=== PATIENT | female | born 1985 | race Two or more races ===

== ENCOUNTER 2021-12-25 16:27 | Emergency (ER) | payer SELFPAY ==
[~2021-12-25] VITALS: Ht 152.4 cm; Wt 61.3 kg
[2021-12-25] MEDS ORDERED: IV NORMAL SALINE 1000ML BAG 1,000 ML IV ONE (16:45)
[2021-12-25 17:01] LABS: U PREG PATIENT POSITIVE (NEG)
[2021-12-25 17:11] LABS: CLARITY,URINE BLOODY; COLOR,URINE RED
[2021-12-25 17:12] LABS: BACTERIA,URINE 0 /HPF (0-FEW); RBC,URINE TNTC /HPF (0-2); WBC,URINE 20-40 /HPF (0-4)
--- NOTE | 2021-12-25 17:12 | PHYS DOC ---
Past Medical History Additional Past Medical Histor: PRE-ECLAMPSIA WITH 2ND Past Surgical History: No Surgical History Smoking Status: Never Smoker Alcohol Use: None Drug Use: None General Adult EDM: Chief Complaint: VAGINAL BLEEDING HPI: HPI: Patient is a 36 year old A0 female who presents with painful vaginal bleeding that began this morning. Patient states the first day of her last known menstrual period was 10/06/2021 and has had a positive home test. Patient is scheduled to establish care on 01/08/2022, about 2 weeks from today. She states that this morning, she went to the bathroom and had suprapubic cramping. At that time, she passed a "lemon sized" blood clot. Patient reports she had 1 additional similar episode prior to arrival here in the emergency department. She reports associated dizziness. She is in no pain at rest. Patient reports she had premature delivery in her last due to preeclampsia. She takes vitamins daily. Patient has no other complaints at this time. Review of Systems: Review of Systems: Constitutional: Denies fever, chills or generalized weakness Eyes: Denies change in visual acuity, visual field deficits or discharge HENT: Denies ear pain, nasal congestion or sore throat Respiratory: Denies cough or shortness of breath Cardiovascular: Denies chest pain, palpitations or edema GI: Denies abdominal pain, nausea, vomiting, bloody stools or diarrhea : See HPI Musculoskeletal: Denies back pain or joint pain Integument: Denies rash or other skin lesion Neurologic: See HPI Heart Score: C/O Chest Pain: No Current Medications: Current Medications Medications (Trade) Dose Ordered Sig/Trevon Start Time Stop Time Status Last Admin Dose Admin Sodium Chloride 1,000 ml @ 1,000 mls/hr 1X ONCE 12/25/21 16:45 12/25/21 17:44 12/25/21 17:00 1,000 MLS/HR Allergies: Allergies: Allergies Coded Allergies Type Severity Reaction Last Updated Verified No Known Drug Allergies 12/25/21 No Physical Exam: PE: Constitutional: Well developed, well nourished, no acute distress, non-toxic appearance. HENT: Normocephalic, atraumatic, bilateral external ears normal, nose normal. Eyes: EOMI, conjunctiva normal, no discharge. Neck: Normal range of motion, no stridor. Abdomen: Bowel sounds normal, soft, mild suprapubic tenderness without rebound or guarding, no masses, no pulsatile masses. Skin: Warm, dry, no erythema, no rash. Extremities: No tenderness, no cyanosis, no clubbing, ROM intact, no edema. Neurologic: Alert and oriented x4, steady and symmetrical upright gait, no focal deficits noted. Current Patient Data: Labs: Laboratory Tests Test 12/25/21 16:32 12/25/21 16:55 Urine Collection Type Unknown Urine Color Red Urine Clarity Bloody Urine pH (<5.0-8.0) Urine Specific [place] (1.000-1.030) Urine Protein mg/dL (NEG-TRACE) Urine Glucose (UA) mg/dL (NEG) Urine Ketones (Stick) mg/dL (NEG) Urine Blood (NEG) Urine Nitrite (NEG) Urine Bilirubin (NEG) Urine Urobilinogen Dipstick mg/dL (0.2 mg/dL) Urine Leukocyte Esterase (NEG) Urine RBC Tntc /HPF (0-2) Urine WBC 20-40 /HPF (0-4) Urine Squamous Epithelial Cells Few /LPF Urine Bacteria 0 /HPF (0-FEW) Urine Mucus Slight /LPF Urine Test Positive (NEG) White Blood Count 14.0 x10^3/uL (4.0-11.0) Red Blood Count 4.16 x10^6/uL (3.50-5.40) Hemoglobin 10.9 g/dL (12.0-15.5) Hematocrit 34.0 % (36.0-47.0) Mean Corpuscular Volume 82 fL (79-100) Mean Corpuscular Hemoglobin 26 pg (25-35) Mean Corpuscular Hemoglobin Concent 32 g/dL (31-37) Red Cell Distribution Width 15.5 % (11.5-14.5) Platelet Count 286 x10^3/uL (140-400) Neutrophils (%) (Auto) 89 % (31-73) Lymphocytes (%) (Auto) 9 % (24-48) Monocytes (%) (Auto) 3 % (0-9) Eosinophils (%) (Auto) 0 % (0-3) Basophils (%) (Auto) 0 % (0-3) Neutrophils # (Auto) 12.4 x10^3/uL (1.8-7.7) Lymphocytes # (Auto) 1.2 x10^3/uL (1.0-4.8) Monocytes # (Auto) 0.4 x10^3/uL (0.0-1.1) Eosinophils # (Auto) 0.0 x10^3/uL (0.0-0.7) Basophils # (Auto) 0.0 x10^3/uL (0.0-0.2) Maternal Serum HCG Beta Subunit 07458 mIU/mL (0-5) Sodium Level 136 mmol/L (136-145) Potassium Level 3.5 mmol/L (3.5-5.1) Chloride Level 101 mmol/L (98-107) Carbon Dioxide Level 21 mmol/L (21-32) Anion Gap 14 (6-14) Blood Urea Nitrogen 7 mg/dL (7-20) Creatinine 0.8 mg/dL (0.6-1.0) Estimated GFR (Cockcroft-Gault) 80.7 BUN/Creatinine Ratio 9 (6-20) Glucose Level 204 mg/dL (70-99) Calcium Level 8.6 mg/dL (8.5-10.1) Total Bilirubin 0.2 mg/dL (0.2-1.0) Aspartate Amino Transf (AST/SGOT) 58 U/L (15-37) Alanine Aminotransferase (ALT/SGPT) 77 U/L (14-59) Alkaline Phosphatase 68 U/L (46-116) Total Protein 7.7 g/dL (6.4-8.2) Albumin 3.2 g/dL (3.4-5.0) Albumin/Globulin Ratio 0.7 (1.0-1.7) Vital Signs: Vital Signs Date Time Temp Pulse Resp B/P (MAP) Pulse Ox O2 Delivery O2 Flow Rate FiO2 12/25/21 18:22 96 16 107/67 (80) 98 Room Air 12/25/21 18:04 98 106/65 (79) 98 Room Air 12/25/21 17:34 100 115/70 (85) 98 Room Air 12/25/21 17:04 108 128/74 (92) 98 Room Air 12/25/21 16:35 98.1 131 20 146/103 (117) 98 Room Air 98.1 Radiology/Procedures: Radiology/Procedures: PROCEDURE: OB <14 WKS W/TV US OB <14 WKS +TV Clinical Indication: Reason: vaginal bleeding with clots, lmp 10/06/21 / Comparison: None. TECHNIQUE: Real-time ultrasound imaging of the pelvis using transabdominal and transvaginal window is performed. Findings: Normal blood flow is demonstrated in the ovaries. There is a right ovary functional cyst measuring up to 2.8 cm. The uterus measures 11.2 x 7.7 x 6.2 cm. The endometrium is thickened and heterogeneous. An intrauterine gestational sac is not identified. There are tiny nabothian cysts. There is a possible fibroid of the right uterus measuring 3.5 x 1.8 x 3.4 cm. No evidence of adnexal mass. No cul-de-sac free fluid is seen. IMPRESSION: 1. An intrauterine gestational sac is not identified. Suggest correlation with quantitative beta hCG. 2. Question right uterine fibroid. 3. Small right ovary functional cyst. Electronically signed by: Otf Stone MD (12/25/2021 5:49 PM) [facility] Course & Med Decision Making: Course & Med Decision Making Pertinent Labs and Imaging studies reviewed. (See chart for details) Patient is a 36-year-old female who presents with vaginal bleeding during . Patient believes she is about 2 months has passed 2 large clots today. Work-up today will consist of urinalysis, labs including serum beta hCG, transvaginal ultrasound. Patient provided with IV fluids. Ultrasound does not show intrauterine . Serum beta hCG is consistent with patient's provided timeline. At this time, differentials include complete miscarriage versus ectopic . Will consult [employer]. Spoke with Dr. Falcon, [employer], who recommends follow-up on outpatient basis after thorough presentation of patient case. Patient was instructed to return to the emergency department in 48 hours for repeat serum beta hCG. Informed the patient that further management is dependent upon this repeated measurement. All of the questions from the patient and her partner at bedside were answered. Return precautions were provided. Patient understands and is agreeable to discharge plan. Dragon Disclaimer: Dragon Disclaimer: This electronic medical record was generated, in whole or in part, using a voice recognition dictation system. Departure Departure Impression: Primary Impression: Spontaneous miscarriage Additional Impressions: Encounter for assessment for suspected ectopic Anemia associated with acute blood loss Leukocytosis, unspecified Disposition: 01 HOME / SELF CARE / HOMELESS Condition: STABLE Referrals: NO PCP (PCP) EVGENY FALCON MD Patient Instructions: Ectopic , [id number], Miscarriage, [id number] Additional Instructions: INSTRUCCIONES GENERALES DE JEFFRY DEL DEPARTAMENTO DE EMERGENCIA Irma por venir hoy al Departamento de Emergencias (ED) de [facility] y confiarnos gauthier atencin. Confiamos en que haya tenido iker experiencia positiva en nuestro Departamento de Emergencias. Si desea hablar con la gerencia del departamento, puede llamar al director al . JUAN INSTRUCCIONES DE SEGUIMIENTO SON LAS SIGUIENTES: 1. Mirella un seguimiento con gauthier mdico de atencin primaria. Si no tiene un mdico de cabecera, solicite iker lista de recursos de mdicos o clnicas que puedan ayudarlo con la atencin de seguimiento. 2. El proveedor de emergencia sweeney interpretado juan estudios de imgenes, si se ordenaron. El especialista en imgenes de radiologa tambin los prashanth. Si hay un cambio en los hallazgos, se le notificar en 48 horas cuando sea posible. 3. Si se sweeney realizado iker prueba de laboratorio o un cultivo, se revisarn juan resultados y se le notificar si necesita un cambio en el tratamiento. 4. Siga las instrucciones verbalizadas y consulte las copias impresas si es necesario. 5. Es muy importante que regrese al departamento de emergencias dentro de las 48 horas para volver a verificar el nivel de beta hCG (hormona del embarazo) en gauthier kathy. INSTRUCCIONES E INFORMACIN ADICIONALES: 1. Gauthier atencin hoy sweeney sido supervisada por un mdico especialmente capacitado en atencin de emergencia. Muchos problemas requieren ms de iker evaluacin para un diagnstico y tratamiento completos. Le recomendamos que programe gauthier layla de seguimiento segn lo recomendado para garantizar el tratamiento completo de gauthier enfermedad o lesin. Si no puede obtener atencin de seguimiento y contina teniendo un problema, o si gauthier condicin empeora, le recomendamos que regrese al servicio de urgencias. 2. No podemos determinar de manera higginbotham gauthier condicin por telfono ni podemos irineo consejos mdicos slidos por telfono. Por estas razones de seguridad, si llama para pedir consejo mdico, le pediremos que vaya al servicio de urgencias para iker evaluacin adicional. 3. Si tiene alguna pregunta sobre estas instrucciones de jeffry, llame al ED al . INFORMACIN DE SEGURIDAD: En inters de la seguridad, el bienestar y la prevencin de lesiones; le recomendamos que use gauthier cinturn de seguridad, si fuma; bastante fumador, y alentamos a la mansi a usar un marshal protector para andar en bicicleta y otros eventos deportivos que presenten un mayor riesgo de lesiones en la bob. SI JUAN SNTOMAS EMPEORAN O SE DESARROLLAN NUEVOS SNTOMAS, O SI TIENE PREOCUPACI ONES SOBRE GAUTHIER CONDICIN; O SI GAUTHIER CONDICIN EMPEORA MIENTRAS ESPERA GAUTHIER LAYLA DE SEGUIMIENTO; PNGASE EN CONTACTO CON GAUTHIER MDICO DE ATENCIN PRIMARIA, EL MDICO CUYO NOMBRE Y NMERO LE DIERON, O REGRESE AL ED INMEDIATAMENTE. ERIC ENRIQUE Dec 25, 2021 17:12
[2021-12-25 17:13] LABS: BASO % 0 % (0-3); EOS % 0 % (0-3); HEMOGLOBIN 10.9 g/dL (12.0-15.5); LYMPH # 1.2 x10^3/uL (1.0-4.8); LYMPH % 9 % (24-48); MEAN CORPUSCULAR HEMOGLOBIN 26 pg (25-35); MEAN CORPUSCULAR HGB CONC 32 g/dL (31-37); MEAN CORPUSCULAR VOLUME 82 fL (79-100); MONO # 0.4 x10^3/uL (0.0-1.1); MONO % 3 % (0-9); NEUT # 12.4 x10^3/uL (1.8-7.7); NEUT % 89 % (31-73); PLATELET COUNT 286 x10^3/uL (140-400); RED BLOOD COUNT 4.16 x10^6/uL (3.50-5.40); RED CELL DISTRIBUTION WIDTH 15.5 % (11.5-14.5)
[2021-12-25 17:19] LABS: CALCIUM 8.6 mg/dL (8.5-10.1); CREATININE 0.8 mg/dL (0.6-1.0); GFR 80.7; POTASSIUM 3.5 mmol/L (3.5-5.1)
[2021-12-25 17:25] LABS: ALBUMIN 3.2 g/dL (3.4-5.0); ALBUMIN/GLOBULIN RATIO 0.7 (1.0-1.7); TOTAL BILIRUBIN 0.2 mg/dL (0.2-1.0); TOTAL PROTEIN 7.7 g/dL (6.4-8.2)
--- NOTE | 2021-12-25 17:52 | RAD ---
US OB <14 WKS +TV Clinical Indication: Reason: vaginal bleeding with clots, lmp 10/06/21 / Comparison: None. TECHNIQUE: Real-time ultrasound imaging of the pelvis using transabdominal and transvaginal window is performed. Findings: Normal blood flow is demonstrated in the ovaries. There is a right ovary functional cyst measuring up to 2.8 cm. The uterus measures 11.2 x 7.7 x 6.2 cm. The endometrium is thickened and heterogeneous. An intrauter ine gestational sac is not identified. There are tiny nabothian cysts. There is a possible fibroid of the right uterus measuring 3.5 x 1.8 x 3.4 cm. No evidence of adnexal mass. No cul-de-sac free fluid is seen. IMPRESSION: 1. An intrauterine gestational sac is not identified. Suggest correlation with quantitative beta hCG . 2. Question right uterine fibroid. 3. Small right ovary functional cyst. Electronically signed by: Otf Stone MD (12/25/2021 5:49 PM) [facility]
[2021-12-25 18:22] VITALS: BP 107/67
== END 2021-12-25 18:30 | disposition home or self-care (01) ==
LOC: ER 16:27
DX: O03.9 Complete or unspecified spontaneous abortion without complication (principal); Z3A.00 Weeks of gestation of pregnancy not specified
CPT/HCPCS: 36415; 76801; 76817; 80053; 81001; 81025; 84702; 85025; 87086; 96360; 99285; J7030

== ENCOUNTER 2021-12-27 16:21 | Emergency (ER) | payer SELFPAY ==
[~2021-12-27] VITALS: Ht 157.5 cm; Wt 61.0 kg
[2021-12-27 16:55] VITALS: BP 119/73
--- NOTE | 2021-12-27 17:43 | PHYS DOC ---
Past Medical History Additional Past Medical Histor: PRE-ECLAMPSIA WITH 2ND (JOSSY MATOS MD) Past Surgical History: No Surgical History (JOSSY MATOS MD) Smoking Status: Never Smoker Alcohol Use: None Drug Use: None (JOSSY MATOS MD) Adult General Chief Complaint Chief Complaint: VAGINAL BLEEDING HPI HPI The patient is a 36-year-old female who is currently around 10 or 11 weeks by last menstrual period. She was seen in this emergency department 2 days ago for scant vaginal bleeding of early . At that time, labs were unremarkable aside from a significantly elevated beta hCG without intrauterine visualized on TVUS and without adnexal abnormality or free fluid on TVUS suggestive of ectopic . Type and screen was not obtained. Patient was counseled to return to the emergency department in 48 hours for repeat labs; she is now back as instructed. Since last seen 48 hours ago, patient states her bleeding has tapered off to near nothing and she is not having any abdominal pain any longer. She otherwise denies symptoms and states she feels entirely well; she specifically denies shortness of breath, chest pain, lightheadedness or dysuria. Vital signs are appropriate here and she is in no acute distress. (JOSSY MATOS MD) Review of Systems Review of Systems A 12 point review of systems was completed and was negative except where noted in HPI above. (JOSSY MATOS MD) Allergies Allergies Allergies Coded Allergies Type Severity Reaction Last Updated Verified No Known Drug Allergies 12/25/21 No (PROMISE RAMIREZ DO) Physical Exam Physical Exam 36-year-old female appearing nontoxic and in no acute distress. Head is normoc ephalic and atraumatic. Neck is supple and nontender. Oropharynx is moist. Lungs are clear to auscultation at all stations. There is a normal S1 and S2 without rubs or gallops and capillary refill is appropriate, less than 2 seconds globally. Abdomen is soft, nontender and nondistended. Skin is warm and dry without cyanosis, clubbing or edema. Psychiatrically, the patient demonstrates appropriate mood and affect and is alert. (JOSSY MATOS MD) Current Patient Data Vital Signs Vital Signs Date Time Temp Pulse Resp B/P (MAP) Pulse Ox O2 Delivery O2 Flow Rate FiO2 12/27/21 16:55 98.7 92 16 119/73 (88) 100 Room Air 98.7 (PROMISE RAMIREZ DO) Lab Values Laboratory Tests Test 12/27/21 17:08 12/27/21 17:17 POC Urine HCG, Qualitative Hcg positive (Negative) Hemoglobin 9.5 g/dL (12.0-15.5) L Maternal Serum HCG Beta Subunit 5065 mIU/mL (0-5) H Laboratory Tests 12/27/21 17:17 (PROMISE RAMIREZ DO) EKG EKG [] (JOSSY MATOS MD) Radiology/Procedures Radiology/Procedures [] (JOSSY MATOS MD) Course & Med Decision Making Course & Med Decision Making Impression based on work-up from prior visit is probable miscarriage. Will type and screen as that was not done last visit. We will recheck H&H and beta-hCG. We will then reevaluate. Based on clinical history and exam today, suspect completed or nearcompleted miscarriage but patient will still need to follow-up closely with her sample stitcher in the next couple of days for clinic reevaluation. Fluent telephonic interpretation used to convey this and she understands and agrees and her questions were answered. 1800: Transition of care to Dr. Ramirez pending rest of lab work, reevaluation for disposition and discharge counseling. (JOSSY MATOS MD) Course & Med Decision Making Assumed care at shift change- disposition pending labs. HB stable at 9.5 Blood type O+ Discharged home with follow up referral to OB-nurse gynecology. (PROMISE RAMIREZ DO) Dragon Disclaimer Dragon Disclaimer This electronic medical record was generated, in whole or in part, using a voice recognition dictation system. (JOSSY MATOS MD) Departure Departure Impression: Primary Impression: Incomplete miscarriage Disposition: 01 HOME / SELF CARE / HOMELESS Condition: STABLE Referrals: NO PCP (PCP) EVGENY ORTEGA MD Patient Instructions: Miscarriage JOSSY MATOS MD Dec 27, 2021 17:43 PROMISE RAMIREZ DO Dec 27, 2021 18:12
== END 2021-12-27 19:11 | disposition home or self-care (01) ==
LOC: ER 16:21
DX: O03.4 Incomplete spontaneous abortion without complication (principal)
CPT/HCPCS: 36415; 81025; 84702; 85018; 86850; 86900; 86901; 99283